=== PATIENT | female | born 1960 | race Caucasian/White ===

== ENCOUNTER 2017-10-15 00:14 | Emergency (ER) | payer SELFPAY ==
[~2017-10-15] VITALS: Ht 167.6 cm; Wt 70.0 kg
[2017-10-15 00:17] VITALS: BP 190/127
[2017-10-15] MEDS ORDERED: HYDROcodone/APAP 5/325 TABLET ONE (00:45)
[2017-10-15] MEDS ORDERED: HYDROcodone/APAP 5/325 TABLET PO ONE (01:00)
== END 2017-10-15 01:45 | disposition home or self-care (01) ==
LOC: ED 01:38
DX: S32.512A Fracture of superior rim of left pubis, initial encounter for closed fracture (principal); S32.592A Other specified fracture of left pubis, initial encounter for closed fracture; S32.10XA Unspecified fracture of sacrum, initial encounter for closed fracture; I10 Essential (primary) hypertension; F17.210 Nicotine dependence, cigarettes, uncomplicated; V03.99XA Pedestrian with other conveyance injured in collision with car, pick-up truck or van, unspecified whether traffic or nontraffic accident, initial encounter; Y93.89 Activity, other specified; Y92.89 Other specified places as the place of occurrence of the external cause; Y99.8 Other external cause status
CPT/HCPCS: 99283

== ENCOUNTER 2017-10-16 00:50 | Emergency (ER) | payer SELFPAY ==
[~2017-10-16] VITALS: Ht 167.6 cm; Wt 70.1 kg
[2017-10-16 00:54] VITALS: BP 158/101
[2017-10-16] MEDS ORDERED: KETOROLAC 30 MG/1 ML IM ONE (01:30)
[2017-10-16] MEDS ORDERED: IBUPROFEN 800 MG TABLET ONE (01:46)
== END 2017-10-16 01:55 | disposition home or self-care (01) ==
LOC: ED 01:06
DX: S32.512D Fracture of superior rim of left pubis, subsequent encounter for fracture with routine healing (principal); S32.502D Unspecified fracture of left pubis, subsequent encounter for fracture with routine healing; Z76.0 Encounter for issue of repeat prescription; I10 Essential (primary) hypertension; F17.200 Nicotine dependence, unspecified, uncomplicated; V09.9XXD Pedestrian injured in unspecified transport accident, subsequent encounter
CPT/HCPCS: 99283